=== PATIENT | female | born 1970 | race Two or more races ===

== ENCOUNTER 2020-02-04 09:57 | Inpatient (IN) | payer OTHER ==
[~2020-02-04] VITALS: Ht 162.6 cm; Wt 62.1 kg
[2020-02-04] MEDS ORDERED: IV NORMAL SALINE 1000 ML BAG IV ONE (10:15)
--- NOTE | 2020-02-04 10:22 | NUR ---
[email or web address], medical screening exam in progress
[2020-02-04] MEDS ORDERED: NITROGLYCERIN 0.4 MG/TAB BOTTLE SL ONE ×2 (10:30→10:37)
[2020-02-04] MEDS ORDERED: METF-442 PO (10:31)
[2020-02-04 10:47] LABS: BASOPHILS # (AUTO) 0.1 K/uL (0.0-8.0); BASOPHILS % (AUTO) 0.8 % (0.0-2.0); EOSINOPHILS # (AUTO) 0.3 K/uL (0.0-0.7); EOSINOPHILS % (AUTO) 4.6 % (0.0-7.0); HEMATOCRIT 36.7 % (31.2-41.9); HEMOGLOBIN 12.9 g/dL (10.9-14.3); LYMPHOCYTES # (AUTO) 2.9 K/uL (20.0-40.0); LYMPHOCYTES % (AUTO) 38.5 % (20.5-51.5); MEAN CORPUSCULAR HEMOGLOBIN 30.6 uug (24.7-32.8); MEAN CORPUSCULAR HGB CONC 35 g/dL (32.3-35.6); MEAN CORPUSCULAR VOLUME 87.3 fL (75.5-95.3); MONOCYTES # (AUTO) 0.4 K/uL (2.0-10.0); MONOCYTES % (AUTO) 5.3 % (0.0-11.0); NEUTROPHILS # (AUTO) 3.8 K/uL (1.8-8.9); NEUTROPHILS % (AUTO) 50.8 % (38.5-71.5); PLATELET COUNT (AUTO) 222 K/uL (179-408); WHITE BLOOD COUNT (AUTO) 7.5 K/uL (3.8-11.8)
[2020-02-04 10:57] LABS: CARBON DIOXIDE 26 mmol/L (21-32); CHLORIDE 106 mmol/L (98-107); CREATININE 0.9 mg/dL (0.6-1.3); GLUCOSE 152 mg/dL (74-106); POTASSIUM 3.9 mmol/L (3.5-5.1); UREA NITROGEN, BLOOD 17 mg/dL (7-18)
[2020-02-04 11:03] LABS: ALANINE AMINOTRANSFERASE 30 U/L (14-59); ALKALINE PHOSPHATASE 54 U/L (50-136); ASPARTATE AMINOTRANSFERASE 18 U/L (15-37); BILIRUBIN,DIRECT < 0.1 mg/dL (0.0-0.2); BILIRUBIN,TOTAL 0.3 mg/dL (0.2-1.0); TOTAL PROTEIN, SERUM 7.2 g/dL (6.4-8.2)
[2020-02-04] MEDS ORDERED: ASPIRIN 325 MG TABLET ONE (11:07)
[2020-02-04] MEDS ORDERED: ASPIRIN 325 MG TABLET PO ONE (11:15)
[2020-02-04] MEDS ORDERED: ACETAMINOPHEN 325 MG TABLET PO PRN (14:15)
[2020-02-04] MEDS ORDERED: ONDANSETRON 4 MG/2 ML VIAL IV PRN (14:15)
[2020-02-04] MEDS ORDERED: MAGNESIUM HYDROXIDE 30 ML LIQUID UDC PO PRN (14:15)
[2020-02-04] MEDS ORDERED: TEMAZEPAM 15 MG CAPSULE PO PRN (14:15)
[2020-02-04] MEDS ORDERED: HYDROCODONE/APAP 5-325MG TABLET PO PRN (14:15)
[2020-02-04 14:17] VITALS: BP 112/71
--- NOTE | 2020-02-04 14:30 | NUR ---
received pt in bed AOx4, on RA with no SOB or distress noted at this time. Telemetry box in place, SB 55. Complained of 3/10 chest tightness with headache and dizziness but patient stated that its' so much better then when she came in. IV on right hand 18g flushed and patent. Admission assessment done and documented. Pt ambulated to bathroom with no pron;em. Oriented room, call light and cellphone within reach. Bed locked in lowest position with siderails 2x up. Will continue to monitor.
[2020-02-04] MEDS ORDERED: ATOR20TA PO (15:40)
[2020-02-04 16:00] VITALS: BP 120/71
--- NOTE | 2020-02-04 16:00 | NUR ---
Complained of more chest tightness and palpitations, still sinus karmen on tele. Placed on O2 @ 2L, patient stated relief and chest tightness subsided. No other complaints at this time.
[2020-02-04] MEDS: METFORMIN HCL 500 MG TABLET PO SCH (18:07)
--- NOTE | 2020-02-04 19:00 | NUR ---
PATIENT ALERT ORIENTED, NO SOB NO CHEST PAIN. PATIENT ON TELE MONITOR SINUS RHYTHM AT THIS TIME, CALL LIGHT WITHIN REACH.
--- NOTE | 2020-02-04 20:13 | NUR ---
DR. ORTIZ MADE ROUNDS AND ORDERED NICOTINE PATCH 7MG ONCE. ONLY
[2020-02-04] MEDS ORDERED: NICOTINE 7 MG/24HR PATCH TD SCH (20:15)
[2020-02-04 20:49] VITALS: BP 105/68
[2020-02-05 01:20] VITALS: BP 100/63
[2020-02-05 05:25] VITALS: BP 106/62
[2020-02-05] MEDS: PANTOPRAZOLE SODIUM 40 MG TABLET.DR PO SCH (05:39)
--- NOTE | 2020-02-05 06:06 | NUR ---
PATIENT ALERT ORIENTED, NO SOB NO CHEST PAIN, TELE MONITOR SINUS RHYTHM, PATIENT COMPLAIN OF HEADACHES MEDICATED ORDERED, CONT TO MONITOR.
[2020-02-05 06:56] LABS: BASOPHILS # (AUTO) 0.1 K/uL (0.0-8.0); BASOPHILS % (AUTO) 0.7 % (0.0-2.0); EOSINOPHILS # (AUTO) 0.4 K/uL (0.0-0.7); EOSINOPHILS % (AUTO) 5.8 % (0.0-7.0); HEMATOCRIT 36.8 % (31.2-41.9); HEMOGLOBIN 12.8 g/dL (10.9-14.3); LYMPHOCYTES # (AUTO) 3.7 K/uL (20.0-40.0); LYMPHOCYTES % (AUTO) 48.3 % (20.5-51.5); MEAN CORPUSCULAR HEMOGLOBIN 30.8 uug (24.7-32.8); MEAN CORPUSCULAR HGB CONC 35 g/dL (32.3-35.6); MEAN CORPUSCULAR VOLUME 88.8 fL (75.5-95.3); MONOCYTES # (AUTO) 0.4 K/uL (2.0-10.0); MONOCYTES % (AUTO) 5.4 % (0.0-11.0); NEUTROPHILS % (AUTO) 39.8 % (38.5-71.5); PLATELET COUNT (AUTO) 206 K/uL (179-408); RED BLOOD CELL COUNT(AUTO) 4.15 MIL/uL (3.63-4.92); WHITE BLOOD COUNT (AUTO) 7.6 K/uL (3.8-11.8)
[2020-02-05 07:05] LABS: BILIRUBIN,TOTAL 0.6 mg/dL (0.2-1.0); CREATININE 0.8 mg/dL (0.6-1.3); MAGNESIUM 2.1 mg/dL (1.8-2.4); PHOSPHOROUS 3.8 mg/dL (2.5-4.9); POTASSIUM 4.1 mmol/L (3.5-5.1); TOTAL PROTEIN, SERUM 6.7 g/dL (6.4-8.2)
--- NOTE | 2020-02-05 07:30 | NUR ---
RECEIVED PATIENT IN BED AWAKE ALERT AND ORIENTED DENIES PAIN OR DISCOMFORTS AT THIS TIME REMAIN ON TELE MONITORING ORDERED CALL LIGHTS AND PERSONAL BELONGINGS ARE WITHIN EASY REACH MADE COMFORTABLE AND WILL CONTINUE TO OBSERVE.
[2020-02-05 07:41] LABS: THYROID STIMULATING HORMONE 0.815 mIU/mL (0.358-3.740)
[2020-02-05] MEDS: METFORMIN HCL 500 MG TABLET PO SCH ×2 (09:00→17:07)
--- NOTE | 2020-02-05 12:00 | NUR ---
PATIENT IS AWAKE ALERT AND ORIENTED DENIES CHEST PRESSURE OR NUMBNESS AT THIS TIME AMBULATORY WITH STEADY GAIT WILL CONTINUE TO OBSERVE.
[2020-02-05 13:41] VITALS: BP 107/64
--- NOTE | 2020-02-05 15:47 | NUR ---
NEW ORDERS NOTED FROM DR NEGRON THERAPEUTIC RECREATION DIRECTOR FOR CARDIAC CTA TO RULE OUT CORONARY ARTERY DISEASE WILL BE DONE IN [place] MOST LIKELY TOMORROW THE TIPPLE TENDER IS AWARE AND WILL SCHEDULE.
[2020-02-05 16:42] VITALS: BP 112/73
--- NOTE | 2020-02-05 17:03 | NUR ---
NEW ORDERS FOR XRAY C SPINE RECEIVED FROM DR ORTIZ PATIENT DENIES NUMBNESS AT THIS TIME WAS ABLE TO HOLD BOTH ARMS AND LEGS UP WITHOUT DRIFT WITH ADEQUATE STRENGTH STATED HAD 3 SHARP PAINS SINCE THIS AM WAS QUICK SPONTANEOUS AND UNPROVOKED AND WENT AWAY RAPIDLY.RESTING IN BED WITH NO C/O AT THIS TIME.
--- NOTE | 2020-02-05 17:39 | NUR ---
XRAY OF THE C SPINE COMPLETED ORDERED AWAITING FOR RESULTS.
--- NOTE | 2020-02-05 19:30 | NUR ---
Received patient lying in bed. AAOx4. In no acute distress. Denies any CP at this time. No SOB. Right hand IV site intact and patent.. NSR on tele at 67/min. Safety measure initiated and call singh within reached.
--- NOTE | 2020-02-05 19:30 | NUR ---
Received patient lying in bed. AAOx4. In no acute distress. Denies any CP at this time. No SOB. Right groin dialysis catheter intact. Midline on left FA intact and patent. NSR on tele at 67/min. Safety measure initiated and call singh within reached. Addendum: 02/05/20 at 2006 by PHOEBE JERONIMO RN Wrong patient.
[2020-02-05] MEDS ORDERED: ATORVASTATIN 10 MG TABLET PO SCH (21:00)
[2020-02-05 21:06] VITALS: BP 106/60
--- NOTE | 2020-02-05 23:45 | NUR ---
Patient complaining of generalized itchiness and stated that she has some rashes on different part if her body. Noted with reddened rashes on arm, abdominal area and thigh. LANEY Maldonado made aware and ordered Benadryl 25mg PO q8HRS. Order noted and will carry out.
[2020-02-06] MEDS: diphenhydrAMINE 25 MG CAP PO SCH ×3 (00:07→15:36)
[2020-02-06 00:21] VITALS: BP 100/64
[2020-02-06 05:47] VITALS: BP 102/65
[2020-02-06] MEDS: PANTOPRAZOLE SODIUM 40 MG TABLET.DR PO SCH (06:02)
--- NOTE | 2020-02-06 06:12 | NUR ---
Slept well last night. In no acute distress. Denies any pain or SOB. Right hand IV site intact and patent. NSR on tele at 64/min. Needs assessed and attended to. Safety measure maintained and call singh within reached.
--- NOTE | 2020-02-06 07:30 | NUR ---
RECIEVED PT LYING IN BED SOUND ASLEEP. AROUSABLE TO CALL, ORIENTEDX3. DENIES ANY DISCOMFORTS AT THIS TIME. HR IS SR, NO ECTOPY. DENIES ANY CHEST PAINS, NO SOB NOTED. HEPLOCK ON THE RIGHT HAND G#18 PATENT AND INTACT.
[2020-02-06 08:00] VITALS: BP 109/77
[2020-02-06] MEDS: METFORMIN HCL 500 MG TABLET PO SCH (08:00)
--- NOTE | 2020-02-06 08:00 | NUR ---
PT IS NPO. HELD GLUCOPHAGE BECAUSE PT IS GOING FOR A CARDIC CTA.
--- NOTE | 2020-02-06 08:00 | NUR ---
SCHEDULED FOR AN AMBULANCE TRANSPORT AT 0900. PT IS GOING TO [facility] FOR CARDIAC CTA AT 10AM.. PT IS AWARE. KEPT NPO.
[2020-02-06] MEDS ORDERED: FENOFIBRATE NANOCRYSTALLIZED 48 MG TABLET PO SCH (09:00)
[2020-02-06] MEDS ORDERED: ATORVASTATIN 20 MG TABLET PO SCH (09:00)
--- NOTE | 2020-02-06 09:45 | NUR ---
PT LEFT FOR [facility] VIA BLS AMBULANCE. CONDITION IS STABLE.
--- NOTE | 2020-02-06 12:14 | NUR ---
PT CAME BACK FROM [facility] VIA BLS AMBULANCE. NO APPARENT DISTRESS NOTED. NEW IV ACCESS ON HER LEFT AC INTACT. PT REQUESTED TO TAKE IT OUT.
--- NOTE | 2020-02-06 13:15 | NUR ---
SEEN AND EXAMINED BY DR MCNEILL, NO ORDERS MADE.
[2020-02-06] MEDS ORDERED: FENO48TA PO (15:19)
[2020-02-06] MEDS ORDERED: ATOR10TA PO (15:19)
[2020-02-06] MEDS ORDERED: NICO1PAT46 TD (15:19)
[2020-02-06] MEDS ORDERED: ASPI81TA31 PO (15:19)
[2020-02-06 16:00] VITALS: BP 105/50
--- NOTE | 2020-02-06 16:00 | NUR ---
SEEN AND EXAMINED BY DR ORTIZ WITH A DISCHARGE ORDER. NEW PRESCRIPTION CALLED OUT TO PT'S PHARMACY.
--- NOTE | 2020-02-06 16:40 | NUR ---
DISCHARGE INSTRUCTIONS GIVEN TO PT WITH GOOD UNDERSTANDING.
--- NOTE | 2020-02-06 16:50 | NUR ---
DISCHARGED PT VIA W/C. PT WILL BE PICKED UP BY HER SON IN THE LOBBY. CONDITION IS STABLE.
== END 2020-02-06 16:50 | disposition home or self-care (01) | DRG 48 ==
LOC: ER 09:57 → TELE3 12:35
PROVIDERS: ADMIT Internal Medicine; ATTEND Internal Medicine
DX: M54.12 Radiculopathy, cervical region (principal); E11.9 Type 2 diabetes mellitus without complications; I25.10 Atherosclerotic heart disease of native coronary artery without angina pectoris; E78.1 Pure hyperglyceridemia; F17.210 Nicotine dependence, cigarettes, uncomplicated; F41.9 Anxiety disorder, unspecified; R20.0 Anesthesia of skin; R53.1 Weakness; Z79.84 Long term (current) use of oral hypoglycemic drugs; Z82.49 Family history of ischemic heart disease and other diseases of the circulatory system
CPT/HCPCS: 36415; 70030-TC; 70450; 71045; 72050; 83735; 84100; 84443; 85025; 93005; A4663; A9150; G0378; J7030; Q0163